=== PATIENT | male | born 1985 | race Caucasian/White ===

== ENCOUNTER 2020-01-31 14:47 | Inpatient (IN) ==
[2020-01-31] MEDS ORDERED: AMIODARONE 450 MG/9 ML VIAL IV ONE (14:57)
[2020-01-31] MEDS ORDERED: EPINEPHrine 1 MG/ML VIAL ONE (15:15)
[2020-01-31] MEDS ORDERED: AMIODARONE 150 MG/3 ML VIAL ONE (15:15)
[2020-01-31 15:21] LABS: ABG Oxygen Saturation 73.5 % (95-100); ABG PCO2 64.4 MM HG (35-48); ABG PO2 76.5 MM HG (80-95); ABG TCO2 9.2 MMOL/L (23-27)
[2020-01-31 15:22] LABS: ABG Base Excess 0.8 MMOL/L (-2.5-2.5); ABG HCO3 19.5 MMOL/L (20-26)
[2020-01-31 15:23] LABS: ABG PH 6.751 (7.35-7.45)
[2020-01-31 15:24] LABS: Basophils # 0.2 10*3/uL (0.0-0.2); Basophils % 0.9 % (0.0-0.8); Eosinophils # 0.1 10*3/uL (0.0-0.87); Eosinophils % 0.5 % (0.00-10.9); Hemoglobin 19.4 GM/DL (14.0-18.0); Immature Granulocytes % 5.5 %; Immature Granulocytes Absolute 1.09 #; Lymphocytes # 11.1 10*3/uL (1.4-4.0); Lymphocytes % 56.4 % (21.2-54.2); Mean Corpuscular HGB Conc 30.4 GM/DL (32-36); Mean Corpuscular Volume 103.9 FL (87-102); Mean Platelet Volume 10.1 FL (9.6-12.0); Monocytes % 5.4 % (1.7-12.7); NRBC # 0.19 10*3/uL; Neutrophils % 31.3 % (38.7-73.9); Platelet Count 197 T/CUMM (130-400); Red Blood Count 6.14 MC/CUMM (3.8-5.5); Red Cell Distribution Width 13.2 % (9.3-17.3); White Blood Count 19.7 T/CUMM (4-12)
[2020-01-31] MEDS ORDERED: MIDAZOLAM 10 MG/2 ML VIAL ONE (15:40)
[2020-01-31 15:42] LABS: Hematocrit 63.8 VOL% (42.0-52.0)
[2020-01-31] MEDS ORDERED: HEPARIN/NACL 0.9% 2 UNITS/ML 1,000 ML IV ONE (15:44)
[2020-01-31] MEDS ORDERED: LIDOCAINE 1% 20 ML VIAL ONE (15:44)
[2020-01-31] MEDS ORDERED: VERAPAMIL 5 MG/2 ML VIAL ONE (15:44)
[2020-01-31] MEDS ORDERED: NITROGLYCERIN DRIP 50 MG/250 ML BOTTLE IV ONE (15:44)
[2020-01-31 15:51] LABS: Albumin 3.7 G/DL (3.4-5.0); Bilirubin,Total 0.4 MG/DL (0.2-1.0); Calcium 9.9 MG/DL (8.5-10.1); Osmolality,Calculated 302.3 MOS/KG (273-304); Total Protein 7.5 G/DL (6.4-8.3)
[2020-01-31] MEDS ORDERED: MIDAZOLAM 100 MG in SODIUM CHLORIDE 0.9% 80 ML IV SCH (16:00)
[2020-01-31] MEDS ORDERED: EPTIFIBATIDE 75 MG/100 ML BOTTLE IV ONE (16:01)
[2020-01-31] MEDS ORDERED: EPTIFIBATIDE 20,000 MCG/10 ML VIAL ONE (16:01)
[2020-01-31] MEDS ORDERED: MIDAZOLAM 10 MG/2 ML VIAL IV STA (16:05)
[2020-01-31] MEDS ORDERED: MIDAZOLAM 2 MG/2 ML VIAL ONE ×2 (16:07→16:23)
[2020-01-31] MEDS ORDERED: ENOXAPARIN 60 MG/0.6 ML SYRINGE ONE (16:11)
[2020-01-31] MEDS ORDERED: AMIODARONE INJ 450 MG in DEXTROSE 5% 241 ML IV SCH ×2 (16:30→23:00)
[2020-01-31] MEDS ORDERED: TICAGRELOR 90 MG TABLET PO STA (16:35)
[2020-01-31] MEDS ORDERED: MIDAZOLAM 2 MG/2 ML VIAL IV ONE ×2 (17:00→17:35)
[2020-01-31 17:05] LABS: Troponin I 0.425 NG/ML (0.00-0.045)
[2020-01-31] MEDS ORDERED: SODIUM BICARBONATE 50 MEQ/50 ML VIAL IV ONE ×2 (17:15→17:23)
[2020-01-31] MEDS ORDERED: PHENYLEPHRINE DRIP 40 MG/250 ML PREMIX IV ONE (17:35)
[2020-01-31 17:36] LABS: ABG Base Excess 0.4 MMOL/L (-2.5-2.5); ABG HCO3 24.4 MMOL/L (20-26); ABG Oxygen Saturation 82.4 % (95-100); ABG PCO2 59.9 MM HG (35-48); ABG PH 7.295 (7.35-7.45); ABG PO2 57.9 MM HG (80-95); ABG TCO2 24.9 MMOL/L (23-27)
[2020-01-31] MEDS ORDERED: CISATRACURIUM 10 MG/5 ML VIAL IV ONE (17:38)
[2020-01-31] MEDS ORDERED: methylPREDNISolone SOD SUC 125 MG/2 ML VIAL IV ONE (17:39)
[2020-01-31] MEDS ORDERED: methylPREDNISolone SOD SUC 125 MG/2 ML VIAL ONE (17:39)
[2020-01-31] MEDS ORDERED: PANTOPRAZOLE 40 MG VIAL IV ONE (17:52)
[2020-01-31] MEDS ORDERED: SODIUM CHLORIDE 0.9% 1,000 ML IV PRN ×2 (17:53→18:15)
[2020-01-31 17:56] LABS: Basophils # 0.1 10*3/uL (0.0-0.2); Basophils % 0.7 % (0.0-0.8); Eosinophils # 0.1 10*3/uL (0.0-0.87); Eosinophils % 0.4 % (0.00-10.9); Hematocrit 48.7 VOL% (42.0-52.0); Hemoglobin 16.8 GM/DL (14.0-18.0); Immature Granulocytes % 5.7 %; Immature Granulocytes Absolute 1.18 #; Lymphocytes # 4.4 10*3/uL (1.4-4.0); Lymphocytes % 21.3 % (21.2-54.2); Mean Corpuscular HGB Conc 34.5 GM/DL (32-36); Mean Corpuscular Volume 91.9 FL (87-102); Monocytes % 2.5 % (1.7-12.7); NRBC # 0.03 10*3/uL; Neutrophils % 69.4 % (38.7-73.9); Platelet Count 251 T/CUMM (130-400); Red Cell Distribution Width 13.1 % (9.3-17.3); White Blood Count 20.8 T/CUMM (4-12)
[2020-01-31] MEDS: MIDAZOLAM 100 MG in SODIUM CHLORIDE 0.9% 80 ML IV SCH (17:59)
[2020-01-31] MEDS: PANTOPRAZOLE INJ 200 MG in SODIUM CHLORIDE 0.9% 250 ML IV SCH (18:07)
[2020-01-31] MEDS: PHENYLEPHRINE DRIP 40 MG/250 ML PREMIX IV PRN ×2 (18:09→22:31)
[2020-01-31] MEDS ORDERED: OXYMETAZOLINE 0.05% NASAL SPRAY 15 ML BOTTLE BOTH NARES PRN (18:16)
[2020-01-31 18:41] LABS: ABG Base Excess -4.2 MMOL/L (-2.5-2.5); ABG HCO3 20.5 MMOL/L (20-26); ABG Oxygen Saturation 79.7 % (95-100); ABG PCO2 53.7 MM HG (35-48); ABG PH 7.262 (7.35-7.45); ABG PO2 56.1 MM HG (80-95); ABG TCO2 20.8 MMOL/L (23-27)
[2020-01-31 18:43] LABS: Ferritin 2547.6 ng/ml (26-388)
[2020-01-31 18:58] LABS: Alanine Aminotransferase 195 U/L (16-61); Albumin 2.5 G/DL (3.4-5.0); Alkaline Phosphatase 145 U/L (45-117); Aspartate Amino Transferase 908 U/L (0-37); Blood Urea Nitrogen 30 MG/DL (7-18); CKMB % 5.6 %; Estimated Glom Filtration Rate 43 ML/MIN; Glucose 230 MG/DL (74-106); Total Protein 5.2 G/DL (6.4-8.3)
[2020-01-31 19:08] LABS: Troponin I > 200.000 NG/ML (0.00-0.045)
[2020-01-31 19:10] LABS: INR 1.5; PT Patient Result 15.8 SECS (9.8-11.9)
[2020-01-31 19:13] LABS: Partial Thromboplastin Time 41.3 SECS (23.9-33.8)
[2020-01-31] MEDS: SODIUM BICARB INJ 100 MEQ in DEXTROSE 5% 1,000 ML IV SCH (20:03)
[2020-01-31] MEDS: TICAGRELOR 90 MG TABLET PO SCH ×2 (20:05→20:35)
[2020-01-31] MEDS: fentaNYL INJ 1,250 MCG in SODIUM CHLORIDE 0.9% 225 ML IV PRN (20:07)
[2020-01-31 20:08] LABS: Lymphocytes 18 % (20-55); Macrocytosis Slight; Platelet Estimate Normal; Segmented Neutrophils 77 % (50-85); Total Cells Counted 100
[2020-01-31 21:25] LABS: Hematocrit 40.6 VOL% (42.0-52.0); Hemoglobin 14.2 GM/DL (14.0-18.0)
[2020-01-31 21:26] LABS: ABG Base Excess -4.6 MMOL/L (-2.5-2.5); ABG HCO3 20.5 MMOL/L (20-26); ABG Oxygen Saturation 89.7 % (95-100); ABG PCO2 42.6 MM HG (35-48); ABG PH 7.314 (7.35-7.45); ABG PO2 68.5 MM HG (80-95); ABG TCO2 18.8 MMOL/L (23-27)
[2020-02-01] MEDS: PHENYLEPHRINE DRIP 40 MG/250 ML PREMIX IV PRN ×2 (01:31→04:06)
[2020-02-01 01:39] LABS: Calcium 6.7 MG/DL (8.5-10.1); Osmolality,Calculated 298.8 MOS/KG (273-304)
[2020-02-01 01:50] LABS: Troponin I > 200.000 NG/ML (0.00-0.045)
[2020-02-01 02:19] LABS: CKMB % 4.5 %
[2020-02-01 04:54] LABS: INR 1.3; PT Patient Result 13.3 SECS (9.8-11.9); Partial Thromboplastin Time 30.9 SECS (23.9-33.8)
[2020-02-01 04:59] LABS: ABG Base Excess -2.6 MMOL/L (-2.5-2.5); ABG HCO3 22.2 MMOL/L (20-26); ABG Oxygen Saturation 99.8 % (95-100); ABG PCO2 30.8 MM HG (35-48); ABG PH 7.436 (7.35-7.45); ABG TCO2 18.5 MMOL/L (23-27)
[2020-02-01 05:16] LABS: Basophils # 0.1 10*3/uL (0.0-0.2); Basophils % 0.2 % (0.0-0.8); Hemoglobin 11.4 GM/DL (14.0-18.0); Immature Granulocytes % 2.3 %; Immature Granulocytes Absolute 0.58 #; Lymphocytes # 1.4 10*3/uL (1.4-4.0); Lymphocytes % 5.5 % (21.2-54.2); Mean Corpuscular HGB Conc 33.5 GM/DL (32-36); Mean Corpuscular Volume 93.9 FL (87-102); Mean Platelet Volume 9.8 FL (9.6-12.0); Monocytes % 4.5 % (1.7-12.7); NRBC # 0.03 10*3/uL; Neutrophils % 87.5 % (38.7-73.9); Platelet Count 182 T/CUMM (130-400); Red Blood Count 3.62 MC/CUMM (3.8-5.5); Red Cell Distribution Width 13.3 % (9.3-17.3); White Blood Count 25.7 T/CUMM (4-12)
[2020-02-01] MEDS: HYDROCORTISONE 100 MG VIAL IV SCH ×3 (05:16→21:32)
[2020-02-01] MEDS: SODIUM BICARB INJ 100 MEQ in DEXTROSE 5% 1,000 ML IV SCH (05:17)
[2020-02-01] MEDS ORDERED: PHENYLEPHRINE INJ 160 MG in SODIUM CHLORIDE 0.9% 234 ML IV PRN (06:00)
[2020-02-01] MEDS ORDERED: NOREPINEPHRINE 4 MG/4 ML VIAL IV ONE (06:35)
[2020-02-01] MEDS: NOREPINEPHRINE 8 MG in SODIUM CHLORIDE 0.9% 242 ML IV PRN ×2 (06:35→13:42)
[2020-02-01 08:01] LABS: Band Neutrophils 10 % (0-10); Lymphocytes 4 % (20-55); Metamyelocytes 8 %; Polychromasia Slight; Segmented Neutrophils 73 % (50-85); Total Cells Counted 100
[2020-02-01 08:02] LABS: Platelet Estimate Adequate
[2020-02-01] MEDS: fentaNYL INJ 1,250 MCG in SODIUM CHLORIDE 0.9% 225 ML IV PRN (08:06)
[2020-02-01] MEDS: TICAGRELOR 90 MG TABLET PO SCH (08:48)
[2020-02-01] MEDS: PIPERACILLIN/TAZOBACTAM 3,375 MG in SODIUM CHLORIDE 0.9% 100 ML IV SCH ×3 (08:48→23:55)
[2020-02-01 08:49] LABS: Barbiturates Screen,Urine Negative (Negative); Benzodiazepines Screen,Urine Positive (Negative); Cannabinoid Screen,Urine Negative (Negative); Opiate Screen,Urine Negative (Negative); Phencyclidine Screen,Urine Negative (Negative)
[2020-02-01] MEDS ORDERED: ASPIRIN EC 81 MG TABLET PO SCH (09:00)
[2020-02-01 10:00] LABS: Troponin I > 200.000 NG/ML (0.00-0.045)
[2020-02-01] MEDS: fentaNYL INJ 2,500 MCG in SODIUM CHLORIDE 0.9% 450 ML IV PRN ×2 (10:29→19:01)
[2020-02-01 11:00] LABS: ABG Base Excess 1.2 MMOL/L (-2.5-2.5); ABG HCO3 25.5 MMOL/L (20-26); ABG Oxygen Saturation 99.9 % (95-100); ABG PCO2 28.7 MM HG (35-48); ABG PH 7.518 (7.35-7.45); ABG TCO2 20.9 MMOL/L (23-27)
[2020-02-01] MEDS ORDERED: CLOPIDOGREL 75 MG TABLET PO STA (11:27)
[2020-02-01] MEDS ORDERED: CALCIUM GLUCONATE 1,000 MG in SODIUM CHLORIDE 0.9% 100 ML IV ONE (11:36)
[2020-02-01 12:01] LABS: Calcium 6.9 MG/DL (8.5-10.1)
[2020-02-01] MEDS: SODIUM CHLORIDE 0.9% 1,000 ML IV SCH ×2 (12:41→20:42)
[2020-02-01 13:29] LABS: ABG Base Excess 2.9 MMOL/L (-2.5-2.5); ABG Oxygen Saturation 99.1 % (95-100); ABG PCO2 36.1 MM HG (35-48); ABG PH 7.472 (7.35-7.45); ABG TCO2 23.9 MMOL/L (23-27)
[2020-02-01] MEDS: MIDAZOLAM 100 MG in SODIUM CHLORIDE 0.9% 80 ML IV SCH ×2 (13:36→18:04)
[2020-02-01 16:01] LABS: ABG HCO3 26.2 MMOL/L (20-26); ABG Oxygen Saturation 98.5 % (95-100); ABG TCO2 24.2 MMOL/L (23-27)
[2020-02-01] MEDS: PANTOPRAZOLE INJ 200 MG in SODIUM CHLORIDE 0.9% 250 ML IV SCH (20:31)
[2020-02-01] MEDS ORDERED: ONDANSETRON 4 MG/2 ML VIAL ONE (23:15)
[2020-02-01] MEDS: ONDANSETRON 4 MG/2 ML VIAL IV PRN (23:18)
[2020-02-01 23:54] LABS: ABG Base Excess 0.5 MMOL/L (-2.5-2.5); ABG HCO3 24.8 MMOL/L (20-26); ABG Oxygen Saturation 95.5 % (95-100); ABG PCO2 42.8 MM HG (35-48); ABG PH 7.385 (7.35-7.45); ABG PO2 85.9 MM HG (80-95); ABG TCO2 23.5 MMOL/L (23-27)
[2020-02-02] MEDS: fentaNYL INJ 2,500 MCG in SODIUM CHLORIDE 0.9% 450 ML IV PRN ×4 (00:01→21:02)
[2020-02-02 00:15] LABS: INR 1.3; PT Patient Result 13.5 SECS (9.8-11.9)
[2020-02-02 03:27] LABS: ABG Base Excess 0.5 MMOL/L (-2.5-2.5); ABG HCO3 24.9 MMOL/L (20-26); ABG Oxygen Saturation 98.4 % (95-100); ABG PCO2 35.6 MM HG (35-48); ABG PH 7.444 (7.35-7.45); ABG TCO2 22.5 MMOL/L (23-27)
[2020-02-02 03:31] LABS: Basophils % 0.1 % (0.0-0.8); Hematocrit 25.2 VOL% (42.0-52.0); Hemoglobin 8.8 GM/DL (14.0-18.0); Immature Granulocytes % 0.6 %; Immature Granulocytes Absolute 0.08 #; Lymphocytes # 1.3 10*3/uL (1.4-4.0); Lymphocytes % 8.9 % (21.2-54.2); Mean Corpuscular HGB Conc 34.9 GM/DL (32-36); Mean Platelet Volume 10.1 FL (9.6-12.0); Monocytes % 5.7 % (1.7-12.7); Neutrophils % 84.7 % (38.7-73.9); Platelet Count 101 T/CUMM (130-400); Red Cell Distribution Width 13.3 % (9.3-17.3); White Blood Count 14.5 T/CUMM (4-12)
[2020-02-02 03:40] LABS: Red Blood Count 2.74 MC/CUMM (3.8-5.5)
[2020-02-02 04:15] LABS: CKMB % 0.6 %
[2020-02-02 04:17] LABS: Troponin I > 200.000 NG/ML (0.00-0.045)
[2020-02-02 04:20] LABS: Band Neutrophils 2 % (0-10); Hypochromasia Slight; Lymphocytes 9 % (20-55); Platelet Estimate Decreased; Segmented Neutrophils 87 % (50-85); Total Cells Counted 100
[2020-02-02 04:21] LABS: Macrocytosis Slight; Polychromasia Slight
[2020-02-02 04:36] LABS: Albumin 2.3 G/DL (3.4-5.0); Bilirubin,Total 0.9 MG/DL (0.2-1.0); Calcium 6.1 MG/DL (8.5-10.1); Osmolality,Calculated 302.7 MOS/KG (273-304); Total Protein 4.5 G/DL (6.4-8.3)
[2020-02-02] MEDS: SODIUM CHLORIDE 0.9% 1,000 ML IV SCH ×3 (05:17→21:38)
[2020-02-02] MEDS: HYDROCORTISONE 100 MG VIAL IV SCH ×3 (05:17→21:42)
[2020-02-02] MEDS: MIDAZOLAM 100 MG in SODIUM CHLORIDE 0.9% 80 ML IV SCH (07:51)
[2020-02-02] MEDS: PIPERACILLIN/TAZOBACTAM 3,375 MG in SODIUM CHLORIDE 0.9% 100 ML IV SCH (09:27)
[2020-02-02] MEDS: LEVOFLOXACIN INJ 750 MG in PREMIX 1 EACH IV SCH (09:52)
[2020-02-02] MEDS: MEROPENEM 500 MG in SODIUM CHLORIDE 0.9% 100 ML IV SCH ×2 (10:36→17:57)
[2020-02-02] MEDS: CLOPIDOGREL 75 MG TABLET PO SCH (10:49)
[2020-02-02] MEDS: ASPIRIN CHEW 81 MG TABLET PO SCH (10:49)
[2020-02-02] MEDS: CALCIUM GLUCONATE 2,000 MG in SODIUM CHLORIDE 0.9% 100 ML IV SCH ×2 (11:09→18:44)
[2020-02-02] MEDS: PANTOPRAZOLE INJ 200 MG in SODIUM CHLORIDE 0.9% 250 ML IV SCH ×2 (18:45→22:55)
[2020-02-02] MEDS: ONDANSETRON 4 MG/2 ML VIAL IV PRN (19:43)
[2020-02-03] MEDS: MEROPENEM 500 MG in SODIUM CHLORIDE 0.9% 100 ML IV SCH ×3 (00:44→18:27)
[2020-02-03] MEDS: MIDAZOLAM 100 MG in SODIUM CHLORIDE 0.9% 80 ML IV PRN ×2 (01:28→16:17)
[2020-02-03] MEDS: fentaNYL INJ 2,500 MCG in SODIUM CHLORIDE 0.9% 450 ML IV PRN ×4 (03:08→21:50)
[2020-02-03 03:55] LABS: ABG Base Excess -1.5 MMOL/L (-2.5-2.5); ABG HCO3 21.3 MMOL/L (20-26); ABG Oxygen Saturation 96.3 % (95-100); ABG PCO2 29.8 MM HG (35-48); ABG PH 7.473 (7.35-7.45); ABG PO2 92.4 MM HG (80-95); ABG TCO2 22.3 MMOL/L (23-27)
[2020-02-03 04:15] LABS: Basophils % 0.1 % (0.0-0.8); Hematocrit 28.3 VOL% (42.0-52.0); Hemoglobin 9.8 GM/DL (14.0-18.0); Immature Granulocytes % 1.5 %; Immature Granulocytes Absolute 0.18 #; Lymphocytes # 1.1 10*3/uL (1.4-4.0); Lymphocytes % 9.2 % (21.2-54.2); Mean Corpuscular HGB Conc 34.6 GM/DL (32-36); Mean Corpuscular Volume 91.6 FL (87-102); Mean Platelet Volume 10.9 FL (9.6-12.0); Monocytes % 6.3 % (1.7-12.7); NRBC # 0.07 10*3/uL; Neutrophils % 82.9 % (38.7-73.9); Platelet Count 79 T/CUMM (130-400); Red Blood Count 3.09 MC/CUMM (3.8-5.5); Red Cell Distribution Width 13.4 % (9.3-17.3); White Blood Count 12.2 T/CUMM (4-12)
[2020-02-03 04:42] LABS: Hypochromasia 1+; Microcytosis 1+; Platelet Estimate Decreased
[2020-02-03 05:29] LABS: Albumin 2.2 G/DL (3.4-5.0); Bilirubin,Total 1.7 MG/DL (0.2-1.0); Calcium 6.8 MG/DL (8.5-10.1); Osmolality,Calculated 305.4 MOS/KG (273-304); Total Protein 4.9 G/DL (6.4-8.3)
[2020-02-03] MEDS: HYDROCORTISONE 100 MG VIAL IV SCH ×2 (05:30→15:37)
[2020-02-03] MEDS: SODIUM CHLORIDE 0.9% 1,000 ML IV SCH ×2 (06:04→17:05)
[2020-02-03] MEDS ORDERED: UPADACITINIB 15 MG PO SCH (09:00)
[2020-02-03] MEDS: ASPIRIN CHEW 81 MG TABLET PO SCH (09:25)
[2020-02-03] MEDS: CLOPIDOGREL 75 MG TABLET PO SCH (09:25)
[2020-02-03] MEDS ORDERED: FUROSEMIDE 20 MG/2 ML VIAL IV ONE (09:43)
[2020-02-03 11:05] LABS: Myeloperoxidase Antibody < 0.2 U
[2020-02-03 13:37] LABS: ABG Base Excess -3.3 MMOL/L (-2.5-2.5); ABG HCO3 21.4 MMOL/L (20-26); ABG Oxygen Saturation 86.3 % (95-100); ABG PCO2 35.5 MM HG (35-48); ABG PH 7.383 (7.35-7.45); ABG PO2 58.2 MM HG (80-95); ABG TCO2 19.2 MMOL/L (23-27)
[2020-02-03] MEDS ORDERED: FUROSEMIDE 40 MG/4 ML VIAL IV ONE (13:48)
[2020-02-03 15:36] LABS: ABG Base Excess -1.9 MMOL/L (-2.5-2.5); ABG HCO3 22.6 MMOL/L (20-26); ABG Oxygen Saturation 86.5 % (95-100); ABG PCO2 37.9 MM HG (35-48); ABG PH 7.386 (7.35-7.45); ABG PO2 59.3 MM HG (80-95); ABG TCO2 20.5 MMOL/L (23-27)
[2020-02-03] MEDS: methylPREDNISolone SOD SUC 40 MG/1 ML VIAL IV SCH (18:25)
[2020-02-04] MEDS: MEROPENEM 500 MG in SODIUM CHLORIDE 0.9% 100 ML IV SCH ×3 (00:50→16:52)
[2020-02-04] MEDS: methylPREDNISolone SOD SUC 40 MG/1 ML VIAL IV SCH ×3 (00:51→16:53)
[2020-02-04 03:10] LABS: ABG Base Excess -0.1 MMOL/L (-2.5-2.5); ABG HCO3 24.3 MMOL/L (20-26); ABG Oxygen Saturation 98.1 % (95-100); ABG PCO2 27.6 MM HG (35-48); ABG PH 7.511 (7.35-7.45); ABG TCO2 19.9 MMOL/L (23-27)
[2020-02-04 03:19] LABS: Basophils % 0.1 % (0.0-0.8); Hematocrit 28.6 VOL% (42.0-52.0); Hemoglobin 10.1 GM/DL (14.0-18.0); Immature Granulocytes % 1.8 %; Immature Granulocytes Absolute 0.18 #; Lymphocytes # 0.9 10*3/uL (1.4-4.0); Lymphocytes % 8.9 % (21.2-54.2); Mean Corpuscular HGB Conc 35.3 GM/DL (32-36); Mean Corpuscular Volume 90.2 FL (87-102); Mean Platelet Volume 11.6 FL (9.6-12.0); Monocytes % 4.9 % (1.7-12.7); NRBC # 0.14 10*3/uL; Neutrophils % 84.3 % (38.7-73.9); Platelet Count 80 T/CUMM (130-400); Red Blood Count 3.17 MC/CUMM (3.8-5.5); Red Cell Distribution Width 12.9 % (9.3-17.3); White Blood Count 10.3 T/CUMM (4-12)
[2020-02-04 03:50] LABS: Troponin I 44.7 NG/ML (0.00-0.045)
[2020-02-04 04:10] LABS: Albumin 2.3 G/DL (3.4-5.0); Bilirubin,Total 1.1 MG/DL (0.2-1.0); Calcium 6.6 MG/DL (8.5-10.1); Osmolality,Calculated 306.4 MOS/KG (273-304); Total Protein 4.6 G/DL (6.4-8.3)
[2020-02-04 04:11] LABS: Hypochromasia 1+; Microcytosis 1+; Platelet Estimate Decreased
[2020-02-04] MEDS: fentaNYL INJ 2,500 MCG in SODIUM CHLORIDE 0.9% 450 ML IV PRN ×3 (04:18→22:55)
[2020-02-04] MEDS: SODIUM CHLORIDE 0.9% 1,000 ML IV SCH (07:27)
[2020-02-04] MEDS: PANTOPRAZOLE 40 MG VIAL IV SCH ×2 (09:36→20:10)
[2020-02-04] MEDS: CALCIUM GLUCONATE 2,000 MG in SODIUM CHLORIDE 0.9% 100 ML IV SCH ×3 (09:36→20:14)
[2020-02-04] MEDS: FUROSEMIDE 100 MG/10 ML VIAL IV SCH ×2 (09:36→16:53)
[2020-02-04] MEDS: ASPIRIN CHEW 81 MG TABLET PO SCH (09:37)
[2020-02-04] MEDS: CLOPIDOGREL 75 MG TABLET PO SCH (09:37)
[2020-02-04] MEDS: LEVOFLOXACIN INJ 750 MG in PREMIX 1 EACH IV SCH (09:37)
[2020-02-04] MEDS: MIDAZOLAM 100 MG in SODIUM CHLORIDE 0.9% 80 ML IV PRN (10:18)
[2020-02-04] MEDS ORDERED: DEXTROSE 50% 25 GM/50 ML VIAL IV PRN (15:26)
[2020-02-04] MEDS ORDERED: GLUCAGON 1 MG VIAL IM PRN (15:26)
[2020-02-04] MEDS: INSULIN REGULAR 100 UNIT/ML SUBCUT SCH (17:50)
[2020-02-04] MEDS: POTASSIUM CHLORIDE 20 MEQ TABLET PO SCH (20:09)
[2020-02-04] MEDS: ASCORBIC ACID 500 MG TABLET PO SCH (20:10)
[2020-02-04] MEDS: MAGNESIUM OXIDE 400 MG TABLET PO SCH (20:10)
[2020-02-05] MEDS: MEROPENEM 500 MG in SODIUM CHLORIDE 0.9% 100 ML IV SCH ×3 (00:36→17:00)
[2020-02-05] MEDS: INSULIN REGULAR 100 UNIT/ML SUBCUT SCH ×4 (00:36→18:20)
[2020-02-05] MEDS: methylPREDNISolone SOD SUC 40 MG/1 ML VIAL IV SCH ×3 (00:36→21:03)
[2020-02-05 05:05] LABS: ABG Base Excess 3.8 MMOL/L (-2.5-2.5); ABG HCO3 27.8 MMOL/L (20-26); ABG Oxygen Saturation 95.4 % (95-100); ABG PH 7.495 (7.35-7.45); ABG TCO2 24.1 MMOL/L (23-27)
[2020-02-05 05:42] LABS: Albumin 2.4 G/DL (3.4-5.0); Bilirubin,Total 1.5 MG/DL (0.2-1.0); Calcium 7.9 MG/DL (8.5-10.1); Osmolality,Calculated 312.1 MOS/KG (273-304); Total Protein 5.1 G/DL (6.4-8.3)
[2020-02-05] MEDS: fentaNYL INJ 2,500 MCG in SODIUM CHLORIDE 0.9% 450 ML IV PRN (07:59)
[2020-02-05] MEDS: ASCORBIC ACID 500 MG TABLET PO SCH ×2 (08:39→21:03)
[2020-02-05] MEDS: ASPIRIN CHEW 81 MG TABLET PO SCH (08:39)
[2020-02-05] MEDS: MAGNESIUM OXIDE 400 MG TABLET PO SCH ×2 (08:39→21:02)
[2020-02-05] MEDS: POTASSIUM CHLORIDE 20 MEQ TABLET PO SCH ×2 (08:39→21:02)
[2020-02-05] MEDS: CLOPIDOGREL 75 MG TABLET PO SCH (08:39)
[2020-02-05] MEDS: PANTOPRAZOLE 40 MG VIAL IV SCH ×2 (08:40→21:02)
[2020-02-05] MEDS ORDERED: methylPREDNISolone SOD SUC 40 MG/1 ML VIAL IV SCH (09:00)
[2020-02-05] MEDS: FUROSEMIDE 100 MG/10 ML VIAL IV SCH ×2 (09:58→17:00)
[2020-02-05] MEDS ORDERED: MAGNESIUM SULF RIDER 2 GM in PREMIX 1 EACH IV ONE (10:46)
[2020-02-05] MEDS: POTASSIUM CHLORIDE 20 MEQ/15 ML UDCUP PER TUBE SCH ×4 (10:59→21:02)
[2020-02-06] MEDS: INSULIN REGULAR 100 UNIT/ML SUBCUT SCH ×4 (00:18→17:26)
[2020-02-06] MEDS: MEROPENEM 500 MG in SODIUM CHLORIDE 0.9% 100 ML IV SCH ×3 (00:46→16:32)
[2020-02-06 05:00] LABS: ABG Base Excess 4.1 MMOL/L (-2.5-2.5); ABG HCO3 27.5 MMOL/L (20-26); ABG Oxygen Saturation 96.2 % (95-100); ABG PCO2 36.8 MM HG (35-48); ABG PH 7.491 (7.35-7.45); ABG PO2 90.9 MM HG (80-95); ABG TCO2 28.6 MMOL/L (23-27)
[2020-02-06 05:12] LABS: Basophils # 0.1 10*3/uL (0.0-0.2); Basophils % 0.3 % (0.0-0.8); Hematocrit 34.9 VOL% (42.0-52.0); Immature Granulocytes % 3.9 %; Immature Granulocytes Absolute 0.84 #; Lymphocytes # 1.5 10*3/uL (1.4-4.0); Mean Corpuscular Volume 92.1 FL (87-102); Mean Platelet Volume 12.3 FL (9.6-12.0); Monocytes % 7.8 % (1.7-12.7); NRBC # 0.03 10*3/uL; Red Blood Count 3.79 MC/CUMM (3.8-5.5); Red Cell Distribution Width 12.9 % (9.3-17.3)
[2020-02-06 05:19] LABS: Hemoglobin 12.2 GM/DL (14.0-18.0); Platelet Count 109 T/CUMM (130-400); White Blood Count 21.3 T/CUMM (4-12)
[2020-02-06 05:29] LABS: Troponin I 23.3 NG/ML (0.00-0.045)
[2020-02-06 05:35] LABS: Calcium 7.7 MG/DL (8.5-10.1)
[2020-02-06 05:44] LABS: Band Neutrophils 1 % (0-10); Lymphocytes 5 % (20-55); Segmented Neutrophils 90 % (50-85); Total Cells Counted 100
[2020-02-06 05:45] LABS: Hypochromasia 1+; Microcytosis 1+; Platelet Estimate Adequate; Polychromasia Slight
[2020-02-06] MEDS: CLOPIDOGREL 75 MG TABLET PO SCH (08:58)
[2020-02-06] MEDS: MAGNESIUM OXIDE 400 MG TABLET PO SCH ×2 (08:58→21:36)
[2020-02-06] MEDS: ASPIRIN CHEW 81 MG TABLET PO SCH (08:58)
[2020-02-06] MEDS: PANTOPRAZOLE 40 MG VIAL IV SCH ×2 (08:59→21:36)
[2020-02-06] MEDS: LEVOFLOXACIN INJ 750 MG in PREMIX 1 EACH IV SCH (08:59)
[2020-02-06] MEDS: methylPREDNISolone SOD SUC 40 MG/1 ML VIAL IV SCH ×2 (08:59→21:37)
[2020-02-06] MEDS: FUROSEMIDE 100 MG/10 ML VIAL IV SCH (08:59)
[2020-02-06] MEDS: POTASSIUM CHLORIDE 20 MEQ TABLET PO SCH ×2 (09:09→21:15)
[2020-02-06] MEDS: POTASSIUM CHLORIDE 20 MEQ/15 ML UDCUP PER TUBE SCH ×4 (09:31→21:01)
[2020-02-06] MEDS: ASCORBIC ACID 500 MG TABLET PO SCH ×2 (09:47→21:02)
[2020-02-06 10:35] LABS: Albumin 2.8 G/DL (3.4-5.0); Bilirubin,Direct 0.42 MG/DL (0.0-0.20); Bilirubin,Indirect 0.6 MG/DL (0.0-1.0); Total Protein 5.4 G/DL (6.4-8.3)
[2020-02-06] MEDS: carvediloL 3.125 MG TABLET PO SCH ×2 (13:13→21:15)
[2020-02-06] MEDS ORDERED: LORazepam 2 MG/1 ML VIAL ONE (13:45)
[2020-02-06] MEDS: LORazepam 2 MG/1 ML VIAL IV PRN ×2 (13:45→17:16)
[2020-02-06] MEDS ORDERED: HALOPERIDOL 5 MG/ML AMP IV PRN (13:54)
[2020-02-06] MEDS: FUROSEMIDE 40 MG TABLET PO SCH (16:32)
[2020-02-06] MEDS: ONDANSETRON 4 MG/2 ML VIAL IV PRN (18:53)
[2020-02-06] MEDS: clonazePAM 0.5 MG TABLET PO SCH (21:02)
[2020-02-06] MEDS: PREGABALIN 50 MG CAPSULE PO SCH (21:03)
[2020-02-07] MEDS: INSULIN REGULAR 100 UNIT/ML SUBCUT SCH ×2 (00:20→06:34)
[2020-02-07] MEDS: MEROPENEM 500 MG in SODIUM CHLORIDE 0.9% 100 ML IV SCH ×2 (01:50→08:12)
[2020-02-07] MEDS: LORazepam 2 MG/1 ML VIAL IV PRN (03:51)
[2020-02-07 04:37] LABS: ABG Base Excess 4.5 MMOL/L (-2.5-2.5); ABG HCO3 28.1 MMOL/L (20-26); ABG Oxygen Saturation 92.6 % (95-100); ABG PCO2 38.1 MM HG (35-48); ABG PH 7.485 (7.35-7.45); ABG PO2 69.3 MM HG (80-95); ABG TCO2 29.2 MMOL/L (23-27)
[2020-02-07 04:40] LABS: Basophils % 0.3 % (0.0-0.8); Hematocrit 31.5 VOL% (42.0-52.0); Hemoglobin 10.8 GM/DL (14.0-18.0); Immature Granulocytes % 3.7 %; Immature Granulocytes Absolute 0.55 #; Lymphocytes # 1.2 10*3/uL (1.4-4.0); Lymphocytes % 7.7 % (21.2-54.2); Mean Corpuscular HGB Conc 34.3 GM/DL (32-36); Mean Corpuscular Volume 92.1 FL (87-102); Mean Platelet Volume 11.6 FL (9.6-12.0); Monocytes % 5.1 % (1.7-12.7); Neutrophils % 83.2 % (38.7-73.9); Red Blood Count 3.42 MC/CUMM (3.8-5.5); Red Cell Distribution Width 13.3 % (9.3-17.3)
[2020-02-07 04:48] LABS: Platelet Count 93 T/CUMM (130-400)
[2020-02-07 04:59] LABS: Calcium 7.9 MG/DL (8.5-10.1); Osmolality,Calculated 304.6 MOS/KG (273-304)
[2020-02-07 07:19] LABS: Band Neutrophils 1 % (0-10); Hypochromasia Slight; Lymphocytes 7 % (20-55); Platelet Estimate Decreased; Segmented Neutrophils 88 % (50-85); Total Cells Counted 100
[2020-02-07] MEDS: FUROSEMIDE 40 MG TABLET PO SCH ×2 (08:11→16:37)
[2020-02-07] MEDS: clonazePAM 0.5 MG TABLET PO SCH ×2 (08:11→21:58)
[2020-02-07] MEDS: CLOPIDOGREL 75 MG TABLET PO SCH (08:11)
[2020-02-07] MEDS: ASCORBIC ACID 500 MG TABLET PO SCH ×2 (08:11→21:58)
[2020-02-07] MEDS: MAGNESIUM OXIDE 400 MG TABLET PO SCH ×2 (08:11→21:58)
[2020-02-07] MEDS: POTASSIUM CHLORIDE 20 MEQ TABLET PO SCH (08:11)
[2020-02-07] MEDS: carvediloL 3.125 MG TABLET PO SCH ×2 (08:11→21:58)
[2020-02-07] MEDS: PREGABALIN 50 MG CAPSULE PO SCH ×2 (08:11→21:59)
[2020-02-07] MEDS: PANTOPRAZOLE 40 MG VIAL IV SCH ×2 (08:12→22:00)
[2020-02-07] MEDS: methylPREDNISolone SOD SUC 40 MG/1 ML VIAL IV SCH ×3 (08:12→21:59)
[2020-02-07] MEDS: ASPIRIN CHEW 81 MG TABLET PO SCH (08:14)
[2020-02-07] MEDS ORDERED: HALOPERIDOL 5 MG/ML AMP IM PRN (08:21)
[2020-02-07] MEDS: OLMESARTAN 5 MG TABLET PO SCH (08:41)
[2020-02-07] MEDS ORDERED: carvediloL 12.5 MG TABLET PO SCH (09:00)
[2020-02-07] MEDS: LEVOFLOXACIN INJ 750 MG in PREMIX 1 EACH IV SCH (09:23)
[2020-02-08 06:24] LABS: Basophils # 0.1 10*3/uL (0.0-0.2); Basophils % 0.4 % (0.0-0.8); Eosinophils # 0.1 10*3/uL (0.0-0.87); Eosinophils % 0.8 % (0.00-10.9); Hematocrit 33.7 VOL% (42.0-52.0); Hemoglobin 11.8 GM/DL (14.0-18.0); Immature Granulocytes % 5.6 %; Immature Granulocytes Absolute 0.92 #; Lymphocytes # 3.8 10*3/uL (1.4-4.0); Lymphocytes % 22.8 % (21.2-54.2); Mean Corpuscular Volume 90.6 FL (87-102); Monocytes % 5.8 % (1.7-12.7); Neutrophils % 64.6 % (38.7-73.9); Platelet Count 124 T/CUMM (130-400); Red Blood Count 3.72 MC/CUMM (3.8-5.5); Red Cell Distribution Width 12.9 % (9.3-17.3); White Blood Count 16.5 T/CUMM (4-12)
[2020-02-08 06:43] LABS: Calcium 7.8 MG/DL (8.5-10.1); Osmolality,Calculated 282.7 MOS/KG (273-304)
[2020-02-08 07:01] LABS: Hypochromasia 1+; Lymphocytes 25 % (20-55); Microcytosis 1+; Segmented Neutrophils 70 % (50-85); Total Cells Counted 100
[2020-02-08] MEDS: FUROSEMIDE 40 MG TABLET PO SCH ×2 (07:38→16:35)
[2020-02-08] MEDS: LEVOFLOXACIN INJ 750 MG in PREMIX 1 EACH IV SCH (07:39)
[2020-02-08] MEDS ORDERED: POTASSIUM CHLORIDE 20 MEQ TABLET PO SCH (09:00)
[2020-02-08] MEDS ORDERED: methylPREDNISolone SOD SUC 40 MG/1 ML VIAL IV SCH (09:00)
[2020-02-08] MEDS: clonazePAM 0.5 MG TABLET PO SCH ×2 (09:29→20:48)
[2020-02-08] MEDS ORDERED: KETOROLAC 10 MG TABLET PO PRN (09:30)
[2020-02-08] MEDS: ASCORBIC ACID 500 MG TABLET PO SCH ×2 (09:30→20:49)
[2020-02-08] MEDS: ASPIRIN CHEW 81 MG TABLET PO SCH (09:30)
[2020-02-08] MEDS: OLMESARTAN 5 MG TABLET PO SCH (09:30)
[2020-02-08] MEDS: PANTOPRAZOLE 40 MG VIAL IV SCH ×2 (09:31→20:48)
[2020-02-08] MEDS: carvediloL 3.125 MG TABLET PO SCH ×2 (09:31→20:49)
[2020-02-08] MEDS: MAGNESIUM OXIDE 400 MG TABLET PO SCH ×2 (09:31→20:49)
[2020-02-08] MEDS: CLOPIDOGREL 75 MG TABLET PO SCH (09:31)
[2020-02-08] MEDS: PREGABALIN 25 MG CAPSULE PO SCH ×2 (09:50→20:49)
[2020-02-08] MEDS: PREGABALIN 50 MG CAPSULE PO SCH (09:54)
[2020-02-08] MEDS: HYDROmorphone 2 MG/1 ML VIAL IV PRN ×2 (19:45→22:50)
[2020-02-08] MEDS: POTASSIUM CHLORIDE 20 MEQ TABLET PO SCH (20:50)
[2020-02-09] MEDS: HYDROmorphone 2 MG/1 ML VIAL IV PRN ×2 (02:09→22:19)
[2020-02-09 05:57] LABS: Calcium 8.2 MG/DL (8.5-10.1)
[2020-02-09 06:02] LABS: Bilirubin,Direct 0.5 MG/DL (0.0-0.20); Bilirubin,Indirect 2.5 MG/DL (0.0-1.0); Total Protein 5.6 G/DL (6.4-8.3)
[2020-02-09] MEDS: ASPIRIN CHEW 81 MG TABLET PO SCH (09:41)
[2020-02-09] MEDS: ASCORBIC ACID 500 MG TABLET PO SCH ×2 (09:41→23:14)
[2020-02-09] MEDS: FUROSEMIDE 40 MG TABLET PO SCH ×2 (09:42→16:03)
[2020-02-09] MEDS: clonazePAM 0.5 MG TABLET PO SCH ×2 (09:42→23:14)
[2020-02-09] MEDS: CLOPIDOGREL 75 MG TABLET PO SCH (09:42)
[2020-02-09] MEDS: PREGABALIN 25 MG CAPSULE PO SCH ×2 (09:42→23:15)
[2020-02-09] MEDS: carvediloL 3.125 MG TABLET PO SCH ×2 (09:42→23:15)
[2020-02-09] MEDS: MAGNESIUM OXIDE 400 MG TABLET PO SCH ×2 (09:42→23:14)
[2020-02-09] MEDS: PANTOPRAZOLE 40 MG VIAL IV SCH ×2 (09:43→23:13)
[2020-02-09] MEDS: POTASSIUM CHLORIDE 20 MEQ TABLET PO SCH ×2 (09:43→23:14)
[2020-02-09] MEDS: LEVOFLOXACIN INJ 750 MG in PREMIX 1 EACH IV SCH (09:43)
[2020-02-09] MEDS: OLMESARTAN 5 MG TABLET PO SCH (09:43)
[2020-02-09] MEDS ORDERED: SODIUM CHLORIDE 0.9% 500 ML IV ONE (12:41)
[2020-02-10] MEDS: HYDROmorphone 2 MG/1 ML VIAL IV PRN ×3 (01:52→23:02)
[2020-02-10 05:45] LABS: Mean Platelet Volume 10.6 FL (9.6-12.0)
[2020-02-10 06:09] LABS: Basophils # 0.1 10*3/uL (0.0-0.2); Basophils % 0.4 % (0.0-0.8); Eosinophils # 0.2 10*3/uL (0.0-0.87); Eosinophils % 1.1 % (0.00-10.9); Hematocrit 39.6 VOL% (42.0-52.0); Immature Granulocytes % 4.4 %; Immature Granulocytes Absolute 0.71 #; Lymphocytes # 3.5 10*3/uL (1.4-4.0); Lymphocytes % 21.2 % (21.2-54.2); Mean Corpuscular HGB Conc 35.4 GM/DL (32-36); Mean Corpuscular Volume 91.9 FL (87-102); Monocytes % 9.4 % (1.7-12.7); Neutrophils % 63.5 % (38.7-73.9); Red Blood Count 4.31 MC/CUMM (3.8-5.5); Red Cell Distribution Width 13.7 % (9.3-17.3); White Blood Count 16.3 T/CUMM (4-12)
[2020-02-10 06:11] LABS: Platelet Count 226 T/CUMM (130-400)
[2020-02-10 06:14] LABS: Calcium 8.5 MG/DL (8.5-10.1); Osmolality,Calculated 278.7 MOS/KG (273-304)
[2020-02-10 06:30] LABS: Eosinophils 1 % (0-10); Lymphocytes 19 % (20-55); Platelet Estimate Adequate; Segmented Neutrophils 77 % (50-85); Total Cells Counted 100
[2020-02-10 06:31] LABS: Hypochromasia 1+; Microcytosis 1+
[2020-02-10] MEDS: POTASSIUM CHLORIDE 20 MEQ TABLET PO SCH ×2 (08:36→21:18)
[2020-02-10] MEDS: CLOPIDOGREL 75 MG TABLET PO SCH (08:36)
[2020-02-10] MEDS: clonazePAM 0.5 MG TABLET PO SCH ×2 (08:36→21:18)
[2020-02-10] MEDS: LEVOFLOXACIN INJ 750 MG in PREMIX 1 EACH IV SCH (08:36)
[2020-02-10] MEDS: MAGNESIUM OXIDE 400 MG TABLET PO SCH ×2 (08:36→21:18)
[2020-02-10] MEDS: ASPIRIN CHEW 81 MG TABLET PO SCH (08:37)
[2020-02-10] MEDS: PANTOPRAZOLE 40 MG VIAL IV SCH ×2 (08:37→21:17)
[2020-02-10] MEDS: ASCORBIC ACID 500 MG TABLET PO SCH ×2 (08:37→21:18)
[2020-02-10] MEDS: PREGABALIN 25 MG CAPSULE PO SCH ×2 (08:37→21:18)
[2020-02-10] MEDS: carvediloL 3.125 MG TABLET PO SCH ×2 (08:44→21:18)
[2020-02-10] MEDS: OLMESARTAN 5 MG TABLET PO SCH (08:44)
[2020-02-11] MEDS: HYDROmorphone 2 MG/1 ML VIAL IV PRN ×2 (02:07→05:19)
[2020-02-11] MEDS: LEVOFLOXACIN 750 MG TABLET PO SCH (09:40)
[2020-02-11] MEDS: OLMESARTAN 5 MG TABLET PO SCH (09:41)
[2020-02-11] MEDS: POTASSIUM CHLORIDE 20 MEQ TABLET PO SCH ×2 (09:41→20:47)
[2020-02-11] MEDS: ASPIRIN CHEW 81 MG TABLET PO SCH (09:42)
[2020-02-11] MEDS: ASCORBIC ACID 500 MG TABLET PO SCH ×2 (09:42→20:48)
[2020-02-11] MEDS: PREGABALIN 25 MG CAPSULE PO SCH ×2 (09:43→20:48)
[2020-02-11] MEDS: CLOPIDOGREL 75 MG TABLET PO SCH (09:44)
[2020-02-11] MEDS: carvediloL 3.125 MG TABLET PO SCH ×2 (09:44→20:49)
[2020-02-11] MEDS: clonazePAM 0.5 MG TABLET PO SCH ×2 (09:44→20:49)
[2020-02-11] MEDS: MAGNESIUM OXIDE 400 MG TABLET PO SCH ×2 (09:45→20:47)
[2020-02-11] MEDS: PANTOPRAZOLE 40 MG VIAL IV SCH ×2 (09:46→20:52)
[2020-02-11] MEDS: MOMETASONE/FORMOTEROL 100-5 INHALER 8.8 GM INH SCH (20:49)
[2020-02-12 08:43] LABS: Basophils # 0.1 10*3/uL (0.0-0.2); Basophils % 0.4 % (0.0-0.8); Eosinophils # 0.1 10*3/uL (0.0-0.87); Eosinophils % 0.8 % (0.00-10.9); Hemoglobin 14.3 GM/DL (14.0-18.0); Immature Granulocytes % 2.6 %; Immature Granulocytes Absolute 0.37 #; Lymphocytes # 3.3 10*3/uL (1.4-4.0); Lymphocytes % 23.1 % (21.2-54.2); Mean Corpuscular Volume 93.5 FL (87-102); Mean Platelet Volume 10.1 FL (9.6-12.0); Monocytes % 7.8 % (1.7-12.7); Neutrophils % 65.3 % (38.7-73.9); Platelet Count 333 T/CUMM (130-400); Red Blood Count 4.49 MC/CUMM (3.8-5.5); Red Cell Distribution Width 13.8 % (9.3-17.3); White Blood Count 14.1 T/CUMM (4-12)
[2020-02-12] MEDS: clonazePAM 0.5 MG TABLET PO SCH (08:57)
[2020-02-12] MEDS: ASPIRIN CHEW 81 MG TABLET PO SCH (08:58)
[2020-02-12] MEDS: MAGNESIUM OXIDE 400 MG TABLET PO SCH (08:58)
[2020-02-12] MEDS: LEVOFLOXACIN 750 MG TABLET PO SCH (08:58)
[2020-02-12] MEDS: POTASSIUM CHLORIDE 20 MEQ TABLET PO SCH (08:59)
[2020-02-12] MEDS: PREGABALIN 25 MG CAPSULE PO SCH (08:59)
[2020-02-12] MEDS: MOMETASONE/FORMOTEROL 100-5 INHALER 8.8 GM INH SCH (08:59)
[2020-02-12] MEDS: ASCORBIC ACID 500 MG TABLET PO SCH (09:00)
[2020-02-12] MEDS: CLOPIDOGREL 75 MG TABLET PO SCH (09:00)
[2020-02-12] MEDS: PANTOPRAZOLE 40 MG VIAL IV SCH (09:00)
[2020-02-12] MEDS: carvediloL 3.125 MG TABLET PO SCH (09:00)
[2020-02-12] MEDS: OLMESARTAN 5 MG TABLET PO SCH (09:00)
[2020-02-12 09:01] LABS: Calcium 8.9 MG/DL (8.5-10.1); Osmolality,Calculated 276.8 MOS/KG (273-304)
[2020-02-12 12:09] VITALS: BP 121/72
== END 2020-02-12 12:07 | DRG 246 ==
LOC: EDUNIT# → EDBD → N.ED 14:47 → N.ICU 15:42 → N.EDINP 16:17 → SUATTDRO 16:17 → N.ICU 16:57 → N.TELEN 02-07 15:48
PROVIDERS: ADMIT Internal Medicine Cardiovascular Disease; ATTEND Family Medicine
PROC: CLCCHCL (ICD-10-PCS; 2020-01-31 16:45)

== ENCOUNTER 2020-05-28 08:43 | Observation (INO) ==
[2020-05-28] MEDS ORDERED: SODIUM CHLORIDE 0.9% 1,000 ML IV STA (09:13)
[2020-05-28 10:15] LABS: Blood Urea Nitrogen 17 MG/DL (7-18); Calcium 9.6 MG/DL (8.5-10.1); Carbon Dioxide 15 MMOL/L (21-32); Estimated Glom Filtration Rate 75 ML/MIN; Glucose 83 MG/DL (74-106); Osmolality,Calculated 277.5 MOS/KG (273-304); Potassium 5.1 MMOL/L (3.5-5.1); Sodium 139 MMOL/L (136-145)
[2020-05-28 10:25] LABS: Basophils # 0.1 10*3/uL (0.0-0.2); Basophils % 0.6 % (0.0-0.8); Eosinophils # 0.1 10*3/uL (0.0-0.87); Eosinophils % 0.9 % (0.00-10.9); Hematocrit 51.2 VOL% (42.0-52.0); Immature Granulocytes % 0.2 %; Immature Granulocytes Absolute 0.02 #; Lymphocytes # 2.9 10*3/uL (1.4-4.0); Lymphocytes % 32.6 % (21.2-54.2); Mean Corpuscular HGB Conc 33.2 GM/DL (32-36); Mean Corpuscular Volume 94.3 FL (87-102); Mean Platelet Volume 9.5 FL (9.6-12.0); Monocytes % 8.7 % (1.7-12.7); Platelet Count 254 T/CUMM (130-400); Red Blood Count 5.43 MC/CUMM (3.8-5.5); Red Cell Distribution Width 12.3 % (9.3-17.3)
[2020-05-28] MEDS ORDERED: ACETAMINOPHEN 500 MG TABLET ONE (10:28)
[2020-05-28] MEDS ORDERED: ACETAMINOPHEN 500 MG TABLET PO STA (10:36)
[2020-05-28] MEDS ORDERED: predniSONE 10 MG TABLET PO PRN (10:45)
[2020-05-28] MEDS ORDERED: MAGNESIUM SULF RIDER 4 GM in PREMIX 1 EACH IV PRN (10:51)
[2020-05-28] MEDS ORDERED: ONDANSETRON 4 MG/2 ML VIAL IV PRN (10:51)
[2020-05-28] MEDS ORDERED: MAGNESIUM SULF RIDER 2 GM in PREMIX 1 EACH IV PRN (10:51)
[2020-05-28] MEDS ORDERED: SIMETHICONE CHEW 125 MG TABLET PO PRN (10:51)
[2020-05-28] MEDS ORDERED: BISACODYL 5 MG TABLET PO PRN (10:51)
[2020-05-28] MEDS ORDERED: SODIUM CHLORIDE 0.9% 1,000 ML IV SCH (11:00)
[2020-05-28 13:07] VITALS: BP 112/61
[2020-05-28] MEDS ORDERED: PREGABALIN 50 MG CAPSULE PO SCH (21:00)
[2020-05-28] MEDS ORDERED: clonazePAM 0.5 MG TABLET PO SCH (21:00)
[2020-05-28] MEDS ORDERED: MOMETASONE/FORMOTEROL 100-5 INHALER 8.8 GM INH SCH (21:00)
[2020-05-28] MEDS ORDERED: DICYCLOMINE 10 MG CAPSULE PO SCH (21:00)
[2020-05-28] MEDS ORDERED: MAGNESIUM OXIDE 400 MG TABLET PO SCH (21:00)
[2020-05-29] MEDS ORDERED: CLOPIDOGREL 75 MG TABLET PO SCH (09:00)
[2020-05-29] MEDS ORDERED: ASPIRIN CHEW 81 MG TABLET PO SCH (09:00)
[2020-05-29] MEDS ORDERED: ROSUVASTATIN 10 MG TABLET PO SCH (09:00)
[2020-05-29] MEDS ORDERED: POTASSIUM CHLORIDE 20 MEQ TABLET PO SCH (09:00)
[2020-05-29] MEDS ORDERED: PANTOPRAZOLE 40 MG TABLET PO SCH (09:00)
[2020-06-03] MEDS ORDERED: ABATACEPT 125 MG/ML SUBCUT SCH (10:45)
[2020-06-03] MEDS ORDERED: AUTO INJECTOR SUBCUT SCH (10:45)
== END 2020-05-28 13:00 | disposition home or self-care (01) ==
LOC: EDUNIT# → EDBD → N.ED 08:43 → N.EDINP 08:43
PROVIDERS: ADMIT Internal Medicine Cardiovascular Disease; ATTEND Internal Medicine Cardiovascular Disease